=== PATIENT | male | born 1980 | race Caucasian/White ===

== ENCOUNTER 2017-03-14 11:18 | Emergency (ER) | payer SELFPAY | END 2017-03-14 15:02 | disposition home or self-care (01) | LOC: ER 11:18 | DX: L02.413 Cutaneous abscess of right upper limb (principal); F17.210 Nicotine dependence, cigarettes, uncomplicated | CPT/HCPCS: 36415; 96365; 96368; J3370 ==

== ENCOUNTER 2017-03-18 19:59 | Emergency (ER) | payer SELFPAY | END 2017-03-18 21:45 | disposition home or self-care (01) | LOC: ER 19:59 | DX: L02.413 Cutaneous abscess of right upper limb (principal); L03.113 Cellulitis of right upper limb; F17.210 Nicotine dependence, cigarettes, uncomplicated | CPT/HCPCS: 96365; 96375; J1885; J3370 ==